=== PATIENT | male | born 1945 | race Caucasian/White ===

== ENCOUNTER 2018-08-18 09:01 | Outpatient (REF) | payer OTHER, SELFPAY ==
[2018-08-18 09:46] LABS: HCT 37.4 % (40.0-50.0); HGB 11.5 g/dL (13.5-17.5); Mean Corp. HGB Concentration 30.7 g/dL (32.0-36.0); Mean Corpuscular Hemoglobin 29.3 pg (27.0-33.0); Mean Corpuscular Volume 95.2 fL (80-95); Mean Platelet Volume 10.8 fL (8.0-11.0); Platelet Count 389 x1000/uL (130-400); RBC 3.93 m/cumm (4.50-6.00); RBC Distribution Width 15.2 % (11.8-14.1); White Blood Cell Count 9.58 k/cumm (4.4-10.8)
[2018-08-18 10:05] LABS: Anion Gap 12.8 mmol/L (3-11); BUN 49 mg/dL (7-18); CO2 24.2 mmol/L (21.0-32.0); CREATININE 1.86 mg/dL (0.70-1.30); Calcium 8.9 mg/dL (8.5-10.1); Chloride 105 mmol/L (98-107); Estimated GFR 35.59 (mL/min/1.73m2); Glucose 175 mg/dL (70-100); Potassium 4.2 mmol/L (3.5-5.1); Sodium 142 mmol/L (136-145); TSH 3.45 uIU/mL (0.358-3.74); Uric Acid 8.1 mg/dL (3.5-7.2)
[2018-08-18 10:28] LABS: Cholesterol 135 mg/dL (50-200); HDL Cholesterol 38 mg/dL (40-60); LDL CHOLESTEROL 70 mg/dL (<100); Triglyceride 130 mg/dL (30-150)
== END 2018-08-18 09:21 ==
LOC: LBN 09:01
PROVIDERS: Visit Provider Nurse Practitioner Adult Health
DX: M10.00 Idiopathic gout, unspecified site (principal); E11.9 Type 2 diabetes mellitus without complications; E78.5 Hyperlipidemia, unspecified; I25.9 Chronic ischemic heart disease, unspecified
CPT/HCPCS: 80048; 80061; 83721; 85027; 84443; 84550

== ENCOUNTER 2018-09-09 09:47 | Emergency (ER) | payer OTHER, SELFPAY ==
[2018-09-09] VITALS (29 sets, daily range): BP systolic 104–130; BP diastolic 57–87; PULSE 79–111; RESP 16–38; TEMP 37; O2SAT 94–98
--- NOTE | 2018-09-09 09:43 | DI.CT_ITS ---
SYMPTOM/DIAGNOSIS: UNRESPONSIVE NONCONTRAST HEAD CT: A noncontrast enhanced examination was performed. Atrophic changes consistent with age are demonstrated and there are regions of diminished absorption in the frontoparietal white matter consistent with small vessel disease. The ventricles are unremarkable. There is no evidence of a skull fracture. Mucoperiosteal thickening is noted in the left ethmoid. The maxillary, right ethmoid, sphenoid and frontal sinuses appear unremarkable. There is no evidence of a mastoid effusion. SUMMARY: No acute intracranial abnormality is demonstrated.
[2018-09-09] MEDS: Normal Saline Flush 10 ML SYR IVP (09:50)
[2018-09-09] MEDS: Normal Saline 1,000 ML 75 ML IV (09:52)
--- NOTE | 2018-09-09 09:56 | W.ED.GENAD ---
Discharge Plan Disposition Patient Disposition: [facility] (LEVEL 2) [facility] Condition: Stable Discharge Details Chief Complaint: Chest Pain Clinical Impression: Chest pain Primary Care Provider: Ron Vicente ED Provider: Evens Gupta Home Meds and New Rx's Prescriptions: Continued metformin 500 mg Tablet 1,000 mg PO DAILY RF: 0 clonidine HCl 0.1 mg Tablet 0.1 mg PO BID RF: 0 acetaminophen 325 mg Tablet 650 mg PO Q6H PRNRF: 0 atorvastatin 20 mg Tablet 20 mg PO DAILY RF: 0 donepezil 5 mg Tablet 5 mg PO QHS RF: 0 sodium bicarbonate 325 mg Tablet 325 mg PO BID RF: 0 sucralfate 1 gram Tablet 1 g PO Q6H PRNRF: 0 lisinopril 20 mg Tablet 20 mg PO DAILY RF: 0 sertraline 100 mg Tablet 200 mg PO DAILY RF: 0 potassium chloride 10 mEq Tablet Extended Release 10 meq PO DAILY RF: 0 clopidogrel 75 mg Tablet 75 mg PO DAILY RF: 0 allopurinol 100 mg Tablet 200 mg PO DAILY RF: 0 aspirin [Aspir-81] 81 mg Tablet,Delayed Release (Dr/Ec) 81 mg PO DAILY RF: 0 isosorbide mononitrate 60 mg Tablet Extended Release 24 Hr 60 mg PO DAILY RF: 0 magnesium hydroxide [Milk of Magnesia] 400 mg/5 mL Suspension 5 ml PO QHS PRNRF: 0 tamsulosin 0.4 mg Capsule 0.8 mg PO DAILY RF: 0 amlodipine 10 mg Tablet 10 mg PO DAILY RF: 0 bisacodyl [Dulcolax (bisacodyl)] 10 mg Suppository 10 mg TN DAILY PRNRF: 0 albuterol sulfate [Proventil HFA] 90 mcg/actuation Hfa Aerosol Inhaler 2 puff INHALATION Q4H PRNRF: 0 colchicine 0.6 mg Tablet 0.6 mg PO DAILY RF: 0 finasteride 5 mg Tablet 5 mg PO DAILY RF: 0 metoprolol tartrate 25 mg Tablet 25 mg PO BID RF: 0 Lantus Solostar U-100 Insulin 100 unit/mL (3 mL) Insulin Pen 38 unit SUBCUT DAILY RF: 0 mirabegron 25 mg Tablet Extended Release 24 Hr 25 mg PO DAILY RF: 0 furosemide 20 mg Tablet 20 mg PO DAILY RF: 0 Discharge Instructions Additional Instructions: We discussed your wishes with our care management adoption social worker Lavinia as well as your family. We completed a COLST form in which you have stated her wishes to not be hospitalized, to be DNR/DNI, to have fluids if needed and antibiotics if they will keep you comfortable. Given your wishes to focus on comfort, a palliative care consult has been placed. Your chest x-ray showed a question of an early pneumonitis, should you develop a fever or cough, at that point antibiotics may be considered. Medical Decision Making 73-year-old male [facility]. He is DNR, DNI, notes he does not want parenteral nutrition or fluids at the end of his life. Found to slump over in a chair in the dining soliman reported to clutch at his chest, unclear if there was a loss of consciousness. EMS found him alert and complaining of chest pain. He was given aspirin and a single nitroglycerin with improvement of his pain. He has a history of ischemic coronary artery disease, A. fib, diabetes. He arrives improving, was placed on a desk monitor, referred for CT scan of the head, chest x-ray, laboratory analysis. The radiographic images of the brain are unremarkable. There is evidence of left retrocardiac early pneumonitis. Lab reveals a white count of 8, hematocrit 37, platelets 227. Chemistries with sodium 141, potassium 4.1, chloride 103, bicarb 29, BUN 25, creatinine 1.3. BNP is elevated at 4000. Patient states he does not wish to have any interventions performed. He clearly is a DNR, DNI, does not want end-of-life fluids or nutrition. He asked to speak to his family and is given a phone that and interviewed by care management both with family member and alone. We completed a coldest form after the patient discussed his wishes with his family. He wishes to not be hospitalized, he wishes to have a focus on comfort. He states that he would be amenable to fluids as well as antibiotics if needed. He wishes to be returned to health and rehab. We have agreed that he would benefit from a palliative care consult which I have placed. The patient is improved. Will relay the question of early pneumonitis to the healthcare facility. Do not feel that he has developed evidence of pneumonia at this time and given that he only wants antibiotics if needed for comfort, will hold off for now. ECG Data Attestation: I personally reviewed and interpreted this ECG (s) as follows: Prior ECG tracings: not available for review Interpretation: A. fib, left bundle branch block, rate of 105, no acute ST segment elevation HPI General Mode of arrival: ambulatory. Date/Time Provider Initiated Documentation: 09/09/18 10:07. Limitations to Documentation: no limitations. Information obtained by: patient and EMS. History of Present Illness 73 year old M presents to the emergency department with the chief complaint of Unresponsive, now with chest pain improved, described as moderate, Quality is described as dull, and is localized to the chest. Patient reports no radiation. Patient started experiencing this minute(s) and it has been other (Improved). No relieving factors improve symptom(s), No exacerbating factors reported . Patient notes other (States he frequently has chest pain); denies headaches and nausea/vomiting. Patient did receive the following treatments prior to arrival, Aspirin and other (Nitro) Related Data Home Medications Medication Instructions Recorded Confirmed Lantus Solostar U-100 Insulin 38 unit SUBCUT DAILY 09/09/18 09/09/18 acetaminophen 650 mg PO Q6H PRN 09/09/18 09/09/18 albuterol sulfate [Proventil HFA] 2 puff INHALATION Q4H PRN 09/09/18 09/09/18 allopurinol 200 mg PO DAILY 09/09/18 09/09/18 amlodipine 10 mg PO DAILY 09/09/18 09/09/18 aspirin [Aspir-81] 81 mg PO DAILY 09/09/18 09/09/18 atorvastatin 20 mg PO DAILY 09/09/18 09/09/18 bisacodyl [Dulcolax (bisacodyl)] 10 mg TN DAILY PRN 09/09/18 09/09/18 clonidine HCl 0.1 mg PO BID 09/09/18 09/09/18 clopidogrel 75 mg PO DAILY 09/09/18 09/09/18 colchicine 0.6 mg PO DAILY 09/09/18 09/09/18 donepezil 5 mg PO QHS 09/09/18 09/09/18 finasteride 5 mg PO DAILY 09/09/18 09/09/18 furosemide 20 mg PO DAILY 09/09/18 09/09/18 isosorbide mononitrate 60 mg PO DAILY 09/09/18 09/09/18 lisinopril 20 mg PO DAILY 09/09/18 09/09/18 magnesium hydroxide [Milk of 5 ml PO QHS PRN 09/09/18 09/09/18 Magnesia] metformin 1,000 mg PO DAILY 09/09/18 09/09/18 metoprolol tartrate 25 mg PO BID 09/09/18 09/09/18 mirabegron 25 mg PO DAILY 09/09/18 09/09/18 potassium chloride 10 meq PO DAILY 09/09/18 09/09/18 sertraline 200 mg PO DAILY 09/09/18 09/09/18 sodium bicarbonate 325 mg PO BID 09/09/18 09/09/18 sucralfate 1 g PO Q6H PRN 09/09/18 09/09/18 tamsulosin 0.8 mg PO DAILY 09/09/18 09/09/18 Allergies Allergy/AdvReac Type Severity Reaction Status Date / Time No Known Allergies Allergy Unverified 09/09/18 09:55 General Stated Complaint: Chest Pain KELLEY: 2 Review of Systems Review of Systems 8 systems reviewed and otherwise negative [facility] Social History Smoking/Tobacco Use Status: Unknown Do you feel safe at home: Yes Do you feel safe in your relationship?: Yes Additional Social history: lives at [facility] H& Exam Narrative Exam Narrative: GEN: awake, alert, interactive. HEAD: Normocephalic, atraumatic ENT: Mucous membranes moist, oropharynx unremarkable, External ear exam unremarkable EYES: PERRL, EOMI NECK: Full ROM, no TERELL, no menigismus CHEST/RESP: Nontender, clear to auscultation bilateral, no wheeze/rhonchi/rales CARDIOVASCULAR: Distant, irregularly irregular, no murmur, rub dae. 2+ Rad pulse bilateral ABDOMEN: Soft, nontender, no mass. +Bowel sounds EXT: Full ROM, trace left pretibial edema, no rash Neuro: Grossly normal neurologic exam, conversant, interactive. Psych: Speech fluent, thoughts congruent, affect normal Course Vital Signs Temperature 37.0 C 09/09/18 09:47 Pulse 96 H 09/09/18 09:47 Respiratory Rate 16 09/09/18 09:47 Blood Pressure 127/58 L 09/09/18 09:47 Pulse Oximetry 96 09/09/18 09:47 Temperature 37.0 C 09/09/18 09:47 Pulse 96 H 09/09/18 09:47 Respiratory Rate 16 09/09/18 09:47 Blood Pressure 127/58 L 09/09/18 09:47 Blood Pressure Position Sitting 09/09/18 09:47 Pulse Oximetry 96 09/09/18 09:47 Oxygen Delivery Method Room Air 09/09/18 09:47 Oxygen Flow Rate 0 09/09/18 09:47 Pain Level 6 09/09/18 09:47
[2018-09-09 10:00] LABS: Abs Immature Grans 0.01 k/cumm (0.0-0.09); Absolute Basophil Count 0.02 k/cumm (0.0-0.2); Absolute Eosinophil Count 0.19 k/cumm (0.0-0.7); Absolute Monocyte Count 0.53 k/cumm (0.11-0.7); Absolute Neutrophil Count 6.93 k/cumm (1.2-6.7); Basophils % 0.2; Eosinophils % 2.2; HCT 37.2 % (40.0-50.0); HGB 11.7 g/dL (13.5-17.5); Immature Grans % 0.1; Lymphocytes % 11.5; Mean Corp. HGB Concentration 31.5 g/dL (32.0-36.0); Mean Corpuscular Hemoglobin 29.8 pg (27.0-33.0); Mean Corpuscular Volume 94.7 fL (80-95); Mean Platelet Volume 10.5 fL (8.0-11.0); Monocytes % 6.1; Neutrophils % 79.9; Platelet Count 227 x1000/uL (130-400); RBC 3.93 m/cumm (4.50-6.00); RBC Distribution Width 15.2 % (11.8-14.1); White Blood Cell Count 8.68 k/cumm (4.4-10.8)
--- NOTE | 2018-09-09 10:01 | ED.GENADUL_ITS ---
Discharge Plan Disposition Patient Disposition: [facility] (LEVEL 2) [facility] Condition: Stable Discharge Details Chief Complaint: Chest Pain Clinical Impression: Chest pain Primary Care Provider: Ron Vicente ED Provider: Evens Gupta Home Meds and New Rx's Prescriptions: Continued metformin 500 mg Tablet 1,000 mg PO DAILY RF: 0 clonidine HCl 0.1 mg Tablet 0.1 mg PO BID RF: 0 acetaminophen 325 mg Tablet 650 mg PO Q6H PRNRF: 0 atorvastatin 20 mg Tablet 20 mg PO DAILY RF: 0 donepezil 5 mg Tablet 5 mg PO QHS RF: 0 sodium bicarbonate 325 mg Tablet 325 mg PO BID RF: 0 sucralfate 1 gram Tablet 1 g PO Q6H PRNRF: 0 lisinopril 20 mg Tablet 20 mg PO DAILY RF: 0 sertraline 100 mg Tablet 200 mg PO DAILY RF: 0 potassium chloride 10 mEq Tablet Extended Release 10 meq PO DAILY RF: 0 clopidogrel 75 mg Tablet 75 mg PO DAILY RF: 0 allopurinol 100 mg Tablet 200 mg PO DAILY RF: 0 aspirin [Aspir-81] 81 mg Tablet,Delayed Release (Dr/Ec) 81 mg PO DAILY RF: 0 isosorbide mononitrate 60 mg Tablet Extended Release 24 Hr 60 mg PO DAILY RF: 0 magnesium hydroxide [Milk of Magnesia] 400 mg/5 mL Suspension 5 ml PO QHS PRNRF: 0 tamsulosin 0.4 mg Capsule 0.8 mg PO DAILY RF: 0 amlodipine 10 mg Tablet 10 mg PO DAILY RF: 0 bisacodyl [Dulcolax (bisacodyl)] 10 mg Suppository 10 mg [place] DAILY PRNRF: 0 albuterol sulfate [Proventil HFA] 90 mcg/actuation Hfa Aerosol Inhaler 2 puff INHALATION Q4H PRNRF: 0 colchicine 0.6 mg Tablet 0.6 mg PO DAILY RF: 0 finasteride 5 mg Tablet 5 mg PO DAILY RF: 0 metoprolol tartrate 25 mg Tablet 25 mg PO BID RF: 0 Lantus Solostar U-100 Insulin 100 unit/mL (3 mL) Insulin Pen 38 unit SUBCUT DAILY RF: 0 mirabegron 25 mg Tablet Extended Release 24 Hr 25 mg PO DAILY RF: 0 furosemide 20 mg Tablet 20 mg PO DAILY RF: 0 Discharge Instructions Additional Instructions: We discussed your wishes with our care management foster care social worker Lavinia as well as your family. We completed a COLST form in which you have stated her wishes to not be hospitalized, to be DNR/DNI, to have fluids if needed and antibiotics if they will keep you comfortable. Given your wishes to focus on comfort, a palliative care consult has been placed. Your chest x-ray showed a question of an early pneumonitis, should you develop a fever or cough, at that point antibiotics may be considered. Medical Decision Making 73-year-old male who has been placed at the [facility] and rehab facility. He is DNR, DNI, notes he does not want parenteral nutrition or fluids at the end of his life. Found to slump over in a chair in the dining soliman reported to clutch at his chest, unclear if there was a loss of consciousness. EMS found him alert and complaining of chest pain. He was given aspirin and a single nitroglycerin with improvement of his pain. He has a history of ischemic coronary artery disease, A. fib, diabetes. He arrives improving, was placed on a youth nutritional monitor, referred for CT scan of the head, chest x-ray, laboratory analysis. The radiographic images of the brain are unremarkable. There is evidence of left retrocardiac early pneumonitis. Lab reveals a white count of 8, hematocrit 37, platelets 227. Chemistries with sodium 141, potassium 4.1, chloride 103, bicarb 29, BUN 25, creatinine 1.3. BNP is elevated at 4000. Patient states he does not wish to have any interventions performed. He clearly is a DNR, DNI, does not want end-of-life fluids or nutrition. He asked to speak to his family and is given a phone that and interviewed by care management both with family member and alone. We completed a coldest form after the patient discussed his wishes with his family. He wishes to not be hospitalized, he wishes to have a focus on comfort. He states that he would be amenable to fluids as well as antibiotics if needed. He wishes to be returned to health and rehab. We have agreed that he would benefit from a palliative care consult which I have placed. The patient is improved. Will relay the question of early pneumonitis to the healthcare facility. Do not feel that he has developed evidence of pneumonia at this time and given that he only wants antibiotics if needed for comfort, will hold off for now. ECG Data Attestation: I personally reviewed and interpreted this ECG (s) as follows: Prior ECG tracings: not available for review Interpretation: A. fib, left bundle branch block, rate of 105, no acute ST segment elevation HPI General Mode of arrival: ambulatory . Date/Time Provider Initiated Documentation: 09/09/18 10:07 . Limitations to Documentation: no limitations . Information obtained by: patient and EMS . History of Present Illness 73 year old M presents to the emergency department with the chief complaint of Unresponsive, now with chest pain improved, described as moderate, Quality is described as dull, and is localized to the chest. Patient reports no radiation. Patient started experiencing this minute(s) and it has been other (Improved). No relieving factors improve symptom(s), No exacerbating factors reported . Patient notes other (States he frequently has chest pain); denies headaches and nausea/vomiting. Patient did receive the following treatments prior to arrival, Aspirin and other (Nitro) Related Data Home Medications Medication Instructions Recorded Confirmed Lantus Solostar U-100 Insulin 38 unit SUBCUT DAILY 09/09/18 09/09/18 acetaminophen 650 mg PO Q6H PRN 09/09/18 09/09/18 albuterol sulfate [Proventil HFA] 2 puff INHALATION Q4H PRN 09/09/18 09/09/18 allopurinol 200 mg PO DAILY 09/09/18 09/09/18 amlodipine 10 mg PO DAILY 09/09/18 09/09/18 aspirin [Aspir-81] 81 mg PO DAILY 09/09/18 09/09/18 atorvastatin 20 mg PO DAILY 09/09/18 09/09/18 bisacodyl [Dulcolax (bisacodyl)] 10 mg [place] DAILY PRN 09/09/18 09/09/18 clonidine HCl 0.1 mg PO BID 09/09/18 09/09/18 clopidogrel 75 mg PO DAILY 09/09/18 09/09/18 colchicine 0.6 mg PO DAILY 09/09/18 09/09/18 donepezil 5 mg PO QHS 09/09/18 09/09/18 finasteride 5 mg PO DAILY 09/09/18 09/09/18 furosemide 20 mg PO DAILY 09/09/18 09/09/18 isosorbide mononitrate 60 mg PO DAILY 09/09/18 09/09/18 lisinopril 20 mg PO DAILY 09/09/18 09/09/18 magnesium hydroxide [Milk of 5 ml PO QHS PRN 09/09/18 09/09/18 Magnesia] metformin 1,000 mg PO DAILY 09/09/18 09/09/18 metoprolol tartrate 25 mg PO BID 09/09/18 09/09/18 mirabegron 25 mg PO DAILY 09/09/18 09/09/18 potassium chloride 10 meq PO DAILY 09/09/18 09/09/18 sertraline 200 mg PO DAILY 09/09/18 09/09/18 sodium bicarbonate 325 mg PO BID 09/09/18 09/09/18 sucralfate 1 g PO Q6H PRN 09/09/18 09/09/18 tamsulosin 0.8 mg PO DAILY 09/09/18 09/09/18 Allergies Allergy/AdvReac Type Severity Reaction Status Date / Time No Known Allergies Allergy Unverified 09/09/18 09:55 General Stated Complaint: Chest Pain KELLEY: 2 Review of Systems Review of Systems 8 systems reviewed and otherwise negative [facility] Social History Smoking/Tobacco Use Status: Unknown Do you feel safe at home: Yes Do you feel safe in your relationship?: Yes Additional Social history: lives at [facility] H& Exam Narrative Exam Narrative: GEN: awake, alert, interactive. HEAD: Normocephalic, atraumatic ENT: Mucous membranes moist, oropharynx unremarkable, External ear exam unremarkable EYES: PERRL, EOMI NECK: Full ROM, no TERELL, no menigismus CHEST/RESP: Nontender, clear to auscultation bilateral, no wheeze/rhonchi/rales CARDIOVASCULAR: Distant, irregularly irregular, no murmur, rub dae. 2+ Rad pulse bilateral ABDOMEN: Soft, nontender, no mass. +Bowel sounds EXT: Full ROM, trace left pretibial edema, no rash Neuro: Grossly normal neurologic exam, conversant, interactive. Psych: Speech fluent, thoughts congruent, affect normal Course Vital Signs Temperature 37.0 C 09/09/18 09:47 Pulse 96 H 09/09/18 09:47 Respiratory Rate 16 09/09/18 09:47 Blood Pressure 127/58 L 09/09/18 09:47 Pulse Oximetry 96 09/09/18 09:47 Temperature 37.0 C 09/09/18 09:47 Pulse 96 H 09/09/18 09:47 Respiratory Rate 16 09/09/18 09:47 Blood Pressure 127/58 L 09/09/18 09:47 Blood Pressure Position Sitting 09/09/18 09:47 Pulse Oximetry 96 09/09/18 09:47 Oxygen Delivery Method Room Air 09/09/18 09:47 Oxygen Flow Rate 0 09/09/18 09:47 Pain Level 6 09/09/18 09:47
[2018-09-09 10:13] LABS: INR 1.1 (0.9-1.1); PTT Activated 23.6 sec (21.0-31.4); Prothrombin Time 10.8 sec (9.3-11.0)
[2018-09-09 10:20] LABS: ALT 25 U/L (12-78); AST 23 U/L (15-37); Alkaline Phosphatase 129 U/L (46-116); Anion Gap 8.9 mmol/L (3-11); BUN 25 mg/dL (7-18); Bilirubin, Total 0.3 mg/dL (0.2-1.0); CO2 29.1 mmol/L (21.0-32.0); CREATININE 1.31 mg/dL (0.70-1.30); Calcium 8.8 mg/dL (8.5-10.1); Chloride 103 mmol/L (98-107); Estimated GFR 53.34 (mL/min/1.73m2); Glucose 183 mg/dL (70-100); Magnesium 1.7 mg/dL (1.8-2.4); Potassium 4.1 mmol/L (3.5-5.1); Sodium 141 mmol/L (136-145); Total Protein 6.4 g/dL (6.4-8.2); Troponin I 0.03 ng/mL (0.00-0.06)
[2018-09-09 10:22] LABS: NT-proBNP 4061 pg/mL
--- NOTE | 2018-09-09 10:34 | DI.RAD_ITS ---
SYMPTOM/DIAGNOSIS: UNRESPONSIVE, CHEST PAIN AP AND LATERAL CHEST: The right lung is clear. There is some ill defined increased density projected over the left lower lobe which could certainly represent an acute pneumonitis. The left lung is otherwise unremarkable. There is no pleural effusion. The heart is enlarged. The hilar structures, mediastinum and tracheal air column are intact. SUMMARY: Findings consistent with a left lower lobe pneumonitis in a patient with cardiomegaly.
--- NOTE | 2018-09-09 11:37 | NUR.NOTE ---
Nursing Note: Pt asking for phone with family. Pt refuses any intervention at this time. Pt states he wants to confess my wrongs to them. Pt refuses lasix IV as well, even after education was provided. Lavinia, landcare officer has been asked to contact family and will follow up with doctor and pt in regards to this. aware.
--- NOTE | 2018-09-09 12:11 | PDOC.ERCMPRO ---
Care Management Progress Note 09/09-Dr. Gupta and Mae RN requested assistance with Dung's disposition. Dung is stating that he does not want to have any interventions, he just wants to go back to [facility] and be comfortable. Called MALATHI Gonzalez and there was no answer. Reached Sophia Naresh, and discussed above. Sophia stated that Aliyah was working and is unreachable at this time. Sophia requested to speak with Dung for which she did. This CM spoke with Sophia and she asked about interventions. Explained that Dr. Gupat found Dung to be able to speak for himself and that this CM would ask Dr. Gupta to reassess. Dr. Gupta and this CM met with Dung. Dung was very clear that he did not want any interventions. He wants to be a DNR/DNI, does not want a feeding tube, would like antibiotics with comfort as goal, would accept IV hydration with comfort as goal. Dung stated that he did not want to come to the hospital, that he would like to go back to [facility] and be comfortable. Discussed COLST form and one has been completed by Dr. Gupta and Dung. (Please see provider note for supporting documentation). Copy of COLST form was given to [facility] and scanned into [facility] EMR. Discussed Palliative Care Consult. Dung is in agreement with a Palliative Consult. Referral faxed to Palliative Care Office. Called Spohia back to update her on the COLST and that Dung is still stating that he does not want any interventions. Sophia stated, I support whatever Dung is saying he wants. I will notify Aliyah as soon as she gets out of work. I did discuss with Sophia that Dung stated he wants to see his family. Sophia states they are scheduled to come for a visit on Thursday or Thursday next week. Plan is for patient to return to [facility] with a COLST form, Palliative Consult, and to be kept comfortable. Dr. Gupta is in agreement with the above.
[2018-09-09] MEDS: Furosemide 20 MG/2 ML VIAL IVP (12:15)
--- NOTE | 2018-09-09 12:26 | CMPROGNOTE_ITS ---
Care Management Progress Note 09/09-Dr. Gupta and Mae RN requested assistance with Dung's disposition. Dung is stating that he does not want to have any interventions, he just wants to go back to [facility] and be comfortable. Called MALATHI Gonzalez and there was no answer. Reached Sophia Naresh, and discussed above. Sophia stated that Aliyah was working and is unreachable at this time. Sophia requested to speak with Dung for which she did. This CM spoke with Sophia and she asked about interventions. Explained that Dr. Gupta found Dung to be able to speak for himself and that this CM would ask Dr. Gupta to reassess. Dr. Gupta and this CM met with Dung. Dung was very clear that he did not want any interventions. He wants to be a DNR/DNI, does not want a feeding tube, would like antibiotics with comfort as goal, would accept IV hydration with comfort as goal. Dung stated that he did not want to come to the hospital, th at he would like to go back to [facility] and be comfortable. Discussed COLST form and one has been completed by Dr. Gupta and Dung. (Please see provider note for supporting documentation). Copy of COLST form was given to [facility] and scanned into [facility] EMR. Discussed Palliative Care Consult. Dung is in agreement with a Palliative Consult. Referral faxed to Palliative Care Office. Called Sophia back to update her on the COLST and that Dung is still stating that he does not want any interventions. Sophia stated, I support whatever Dung is saying he wants. I will notify Aliyah as soon as she gets out of work. I did discuss with Sophia that Dung stated he wants to see his family. Sophia states they are scheduled to come for a visit on Thursday or Thursday next week. Plan is for patient to return to [facility] with a COLST form, Palliative Consult, and to be kept comfortable. Dr. Gupta is in agreement with the above.
--- NOTE | 2018-09-09 13:53 | NUR.NOTE ---
Nursing Note: Spoke with LEONA tim on the phone and updated on plan of care and pt wishes. Difficulty having transport arranged from [facility]. Please see care professional note from this date addressing these difficulties. ED advanced nursing professor made aware.
--- NOTE | 2018-09-09 15:04 | NUR.NOTE ---
patient sitting in wheelchair, patient awaiting for [facility] wheelchair van to return patient home Nursing Note:
== END 2018-09-09 15:07 | disposition intermediate care facility (04) ==
PROVIDERS: Emergency Provider Emergency Medicine; PCP Family Medicine
DX: R07.9 Chest pain, unspecified (principal); I44.7 Left bundle-branch block, unspecified; I48.91 Unspecified atrial fibrillation
CPT/HCPCS: 36415; 80053; 93005; 96361; 96374; 99285; 70450; 71046; 83735; 83880; 84484; 85025; 85610; 85730; 93010; J1941

== ENCOUNTER 2018-12-23 22:51 | Emergency (ER) | payer MEDICARE, OTHER, SELFPAY ==
[2018-12-23] VITALS (10 sets, daily range): BP systolic 129–131; BP diastolic 72–85; PULSE 78–93; RESP 17–26; TEMP 36.4; O2SAT 94–96
--- NOTE | 2018-12-23 23:01 | DI.RAD_ITS ---
SYMPTOM/DIAGNOSIS: COUGH, CHEST PAIN PA AND LATERAL CHEST: Comparison is made with 09 Sep 2018. The heart is again noted to be enlarged. There are small bilateral pleural effusions. There is vascular prominence and increased densities at the lung bases suspicious for CHF. The findings appear more prominent when compared with the previous exam. IMPRESSION: Bilateral pleural effusions, cardiomegaly and CHF.
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
[2018-12-23] MEDS: MORPHine 10 MG/ML VIAL 4 MG IVP (23:14)
[2018-12-23 23:18] LABS: Abs Immature Grans 0.02 k/cumm (0.0-0.09); Absolute Basophil Count 0.03 k/cumm (0.0-0.2); Absolute Eosinophil Count 0.21 k/cumm (0.0-0.7); Absolute Lymphocyte Count 1.87 k/cumm (1.2-3.4); Absolute Monocyte Count 0.68 k/cumm (0.11-0.7); Absolute Neutrophil Count 5.45 k/cumm (1.2-6.7); Basophils % 0.4; Eosinophils % 2.5; HCT 38.4 % (40.0-50.0); HGB 12.1 g/dL (13.5-17.5); Immature Grans % 0.2; Lymphocytes % 22.6; Mean Corp. HGB Concentration 31.5 g/dL (32.0-36.0); Mean Corpuscular Hemoglobin 30.6 pg (27.0-33.0); Mean Platelet Volume 10.7 fL (8.0-11.0); Monocytes % 8.2; Neutrophils % 66.1; Platelet Count 298 x1000/uL (130-400); RBC 3.96 m/cumm (4.50-6.00); RBC Distribution Width 15.4 % (11.8-14.1); White Blood Cell Count 8.26 k/cumm (4.4-10.8)
[2018-12-23 23:27] LABS: INR 1.1 (0.9-1.1); PTT Activated 23.2 sec (21.0-31.4); Prothrombin Time 10.9 sec (9.3-11.0)
[2018-12-23 23:36] LABS: ALT 27 U/L (16-63); AST 32 U/L (15-37); Albumin 2.9 g/dL (3.4-5.0); Alkaline Phosphatase 103 U/L (46-116); Anion Gap 7.1 mmol/L (3-11); BUN 36 mg/dL (7-18); Bilirubin, Total 0.3 mg/dL (0.2-1.0); CO2 30.9 mmol/L (21.0-32.0); CREATININE 1.43 mg/dL (0.70-1.30); Calcium 8.4 mg/dL (8.5-10.1); Chloride 106 mmol/L (98-107); Estimated GFR 48.21 (mL/min/1.73m2); Glucose 129 mg/dL (70-100); NT-proBNP 8906 pg/mL; Sodium 144 mmol/L (136-145); Total Protein 6.1 g/dL (6.4-8.2)
[2018-12-23 23:37] LABS: Troponin I < 0.05 ng/mL (0.00-0.06)
[2018-12-24] VITALS (8 sets, daily range): BP systolic 119–127; BP diastolic 65–74; PULSE 76–94; RESP 20–24; O2SAT 94–96
--- NOTE | 2018-12-24 00:10 | DI.VRAD_ITS ---
EXAM: XR Chest, 2 Views EXAM DATE/TIME: 12/23/2018 23:02 CLINICAL HISTORY: 73 years old, male; Chest pain; Type not specified; Additional info: Cough, chest pain TECHNIQUE: Imaging protocol: XR of the chest Views: 2 views. COMPARISON: CR XR CHEST 2V PA LATERAL 09/09/2018 10:27 FINDINGS: Lungs: Generalized increase in hazy opacities in the bases. Pleural space: Pleural effusions are now present, small on the left and probably trace on the right. No pneumothorax. Heart/Mediastinum: Moderate cardiomegaly. Vasculature: Atherosclerosis. Bones/joints: No acute fracture. IMPRESSION: 1. Generalized increase in vascular congestion in the setting of cardiomegaly, probably worsened CHF. 2. Increased hazy opacities in the lung bases, probably subsegmental atelectasis, consider pneumonia in the right clinical setting. Dictated and Authenticated by: Letty Coy MD. Ordering:SUSI Mane MD
[2018-12-24] MEDS: Amoxicillin 875/Clav. 125 TAB PO (00:27)
[2018-12-24] MEDS: Doxycycline Hyclate 100 MG CAP PO (00:27)
== END 2018-12-24 00:49 | disposition skilled nursing facility (03) ==
PROVIDERS: Emergency Provider Student in an Organized Health Care Education/Training Program; PCP Family Medicine
DX: J18.9 Pneumonia, unspecified organism (principal); K21.9 Gastro-esophageal reflux disease without esophagitis; I50.9 Heart failure, unspecified; I13.0 Hypertensive heart and chronic kidney disease with heart failure and stage 1 through stage 4 chronic kidney disease, or unspecified chronic kidney disease; N18.9 Chronic kidney disease, unspecified; I48.91 Unspecified atrial fibrillation; E11.22 Type 2 diabetes mellitus with diabetic chronic kidney disease; Z79.4 Long term (current) use of insulin; I25.10 Atherosclerotic heart disease of native coronary artery without angina pectoris; Z95.5 Presence of coronary angioplasty implant and graft; Z66 Do not resuscitate
CPT/HCPCS: 36415; 80053; 93005; 96374; 99285; 71046; 83880; 84484; 85025; 85610; 85730; 93010; J2270

== ENCOUNTER 2019-01-19 21:48 | Emergency (ER) | payer OTHER, SELFPAY ==
[2019-01-19 21:54] VITALS: BP 147/85; PULSE 96; RESP 21; TEMP 36.1; O2SAT 96
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
--- NOTE | 2019-01-19 23:21 | DI.CT_ITS ---
EXAM: CT HEAD CERVICAL SPINE WO CLINICAL HISTORY: fall. TECHNIQUE: COMPARISON: CT HEAD WO from 09/09/2018 FINDINGS: CT examination the cervical spine was performed utilizing multi slice acquisition and multiplanar rec onstruction. There are severe degenerative changes of the cervical spine. There is multilevel disc space loss of height consistent with disc degeneration. Mild anterolisthesis of C4 on C5 presumably chronic. No evidence of acute fracture or dislocation. Images obtained through the lung apices are unremarkable. Tracheolaryngeal structures appear intact. Bilateral pleural effusions are noted. No cervical mass or adenopathy. Noncontrast cranial CT was performed. There is moderate generalized cerebral atrophy. No evidence o f acute intracranial hemorrhage mass effect or midline shift. No calvarial fracture. Mastoid air ce lls and visualized paranasal sinuses are clear. Orbital and temporal bone structures appear intact. IMPRESSION: No evidence of acute intracranial process. No evidence of acute cervical spine fracture. Severe cervical spine DJD noted. Bilateral pleural effusions noted.
--- NOTE | 2019-01-19 23:21 | DI.RAD_ITS ---
EXAM: XR CHEST 2V PA LATERAL INDICATION: fall. COMPARISON: XR CHEST 2V PA LATERAL from 12/23/2018 TECHNIQUE: 2D digital imaging was performed. FINDINGS: The heart is enlarged. There are bilateral pleural effusions and there is mild increase in pulmonary interstitial markings suggesting mild diffuse pulmonary edema. IMPRESSION: Findings suggesting the presence of acute CHF.
--- NOTE | 2019-01-19 23:53 | DI.VRAD_ITS ---
PROCEDURE INFORMATION: Exam: CT Head Without Contrast Exam date and time: 01/19/2019 11:08 PM Clinical history: 73 years old, male; Injury or trauma; Initial encounter; Blunt trauma (contusions or hematomas); Consciousness not specified; Injury date: 01/19/2019; Injury details: Fall from wheelchair TECHNIQUE: Imaging protocol: Computed tomography of the head without contrast. Radiation optimization: All CT scans at this facility use at least one of these dose optimization techniques: automated exposure control; mA and/or kV adjustment per patient size (includes targeted exams where dose is matched to clinical indication); or iterative reconstruction. COMPARISON: CT HEAD WO 09/09/2018 10:21 AM FINDINGS: Brain: There is no acute intracranial hemorrhage, mass effect or midline shift. No large acute territorial infarct identified. There are patchy regions of hypodensity in the periventricular and subcortical white matter, likely on the basis of chronic microvascular ischemic disease. Ventricles: The ventricles and sulci are prominent in size, which is likely related to global cerebral volume loss. Bones/joints: Unremarkable. No acute fracture. Sinuses: Visualized sinuses are unremarkable. No fluid levels. Mastoid air cells: Visualized mastoid air cells are well aerated. Soft tissues: Unremarkable. Vasculature: There are extensive atherosclerotic calcifications at the bilateral carotid siphons. IMPRESSION: No acute intracranial hemorrhage, mass effect or midline shift. PROCEDURE INFORMATION: Exam: CT Cervical Spine Without Contrast Exam date and time: 01/19/2019 11:08 PM Clinical history: 73 years old, male; Injury or trauma; Initial encounter; Blunt trauma (contusions or hematomas); Consciousness not specified; Injury date: 01/19/2019; Injury details: Fall from wheelchair TECHNIQUE: Imaging protocol: Computed tomography images of the cervical spine without contrast. Radiation optimization: All CT scans at this facility use at least one of these dose optimization techniques: automated exposure control; mA and/or kV adjustment per patient size (includes targeted exams where dose is matched to clinical indication); or iterative reconstruction. COMPARISON: CT HEAD WO 09/09/2018 10:21 AM FINDINGS: Vertebrae: There is grade 1 anterolisthesis of C4 on C5. There is fusion of the bilateral facet joints at the C3-C4 level. No acute fracture is seen. Discs/Spinal canal/Neural foramina: Multilevel degenerative changes are noted with degenerative disc disease and facet arthropathy. There is no significant spinal canal stenosis. Multilevel neural foraminal narrowing is noted. Soft tissues: Unremarkable. Pleural space: Bilateral pleural effusions are noted. IMPRESSION: 1. No evidence of acute fracture or listhesis. Multilevel degenerative changes as described. 2. Bilateral pleural effusions. Dictated and Authenticated by: Mely Pedraza MD. Ordering:ABIEL Razo MD
--- NOTE | 2019-01-19 23:57 | DI.VRAD_ITS ---
PROCEDURE INFORMATION: Exam: XR Chest, 2 Views Exam date and time: 01/19/2019 11:20 PM Clinical history: 73 years old, male; Injury or trauma; Initial encounter; Blunt trauma (contusions or hematomas); Injury date: 01/19/2019; Injury details: Fall from wheelchair TECHNIQUE: Imaging protocol: XR of the chest Views: 2 views. COMPARISON: SC XR CHEST 2V PA LATERAL 12/23/2018 11:26 PM FINDINGS: Lungs: Hazy opacities in the bilateral lung hall may represent mild pulmonary edema. Pleural space: There are bilateral pleural effusions. Heart/Mediastinum: Cardiomegaly is noted. Bones/joints: Unremarkable. IMPRESSION: Cardiomegaly with hazy opacities and bilateral pleural effusions which may be secondary to cardiogenic pulmonary edema. Dictated and Authenticated by: Mely Pedraza MD. Ordering:BAIEL Razo MD
[2019-01-20 00:12] VITALS: BP 140/87; PULSE 90; RESP 18; TEMP 36.6; O2SAT 98
== END 2019-01-20 00:20 | disposition intermediate care facility (04) ==
PROVIDERS: Emergency Provider Emergency Medicine; PCP Family Medicine
DX: M54.2 Cervicalgia (principal); W05.0XXA Fall from non-moving wheelchair, initial encounter; E11.9 Type 2 diabetes mellitus without complications; J44.9 Chronic obstructive pulmonary disease, unspecified; I10 Essential (primary) hypertension; Z79.4 Long term (current) use of insulin; Z87.891 Personal history of nicotine dependence
CPT/HCPCS: 99284; 70450; 71046; 72125

== ENCOUNTER 2019-08-18 18:16 | Outpatient (REF) | payer SELFPAY ==
[2019-08-18 16:10] LABS: HCT 36.3 % (40.0-50.0); HGB 11.5 g/dL (13.5-17.5); Mean Corp. HGB Concentration 31.7 g/dL (32.0-36.0); Mean Corpuscular Hemoglobin 31.8 pg (27.0-33.0); Mean Corpuscular Volume 100.3 fL (80-95); Mean Platelet Volume 10.3 fL (8.0-11.0); Platelet Count 275 x1000/uL (130-400); RBC 3.62 m/cumm (4.50-6.00); RBC Distribution Width 14.5 % (11.8-14.1); White Blood Cell Count 6.88 k/cumm (4.4-10.8)
[2019-08-18 16:12] LABS: Anion Gap 6.1 mmol/L (3-11); BUN 41 mg/dL (7-18); CO2 32.9 mmol/L (21.0-32.0); CREATININE 1.54 mg/dL (0.70-1.30); Calcium 8.6 mg/dL (8.5-10.1); Chloride 102 mmol/L (98-107); Estimated GFR 44.14 (mL/min/1.73m2); Glucose 161 mg/dL (74-106); Magnesium 1.7 mg/dL (1.8-2.4); Potassium 3.7 mmol/L (3.5-5.1); Sodium 141 mmol/L (136-145)
[2019-08-18 16:33] LABS: NT-proBNP 8760 pg/mL (<300)
== END 2019-08-18 18:36 ==
LOC: LBN 18:16
PROVIDERS: PCP Family Medicine; Visit Provider Nurse Practitioner Adult Health
DX: I50.9 Heart failure, unspecified (principal); F25.9 Schizoaffective disorder, unspecified; E11.9 Type 2 diabetes mellitus without complications; E03.9 Hypothyroidism, unspecified
CPT/HCPCS: 80048; 85027; 83735; 83880

== ENCOUNTER 2019-09-17 15:53 | Outpatient (REF) | payer MEDICARE, OTHER, SELFPAY ==
[2019-09-17 16:38] LABS: Anion Gap 8.4 mmol/L (3-11); BUN 72 mg/dL (7-18); CO2 27.6 mmol/L (21.0-32.0); CREATININE 2.33 mg/dL (0.70-1.30); Calcium 8.4 mg/dL (8.5-10.1); Chloride 107 mmol/L (98-107); Estimated GFR 27.37 (mL/min/1.73m2); Glucose 141 mg/dL (74-106); Potassium 4.5 mmol/L (3.5-5.1); Sodium 143 mmol/L (136-145)
== END 2019-09-17 16:13 ==
LOC: LBN 15:53
PROVIDERS: PCP Family Medicine; Visit Provider Nurse Practitioner Adult Health
DX: I50.9 Heart failure, unspecified (principal); E11.9 Type 2 diabetes mellitus without complications; E78.5 Hyperlipidemia, unspecified; E03.9 Hypothyroidism, unspecified
CPT/HCPCS: 80048

== ENCOUNTER 2019-10-04 09:59 | Outpatient (REF) | payer MEDICARE, OTHER, SELFPAY ==
[2019-10-04 11:31] LABS: HCT 35.6 % (40.0-50.0); HGB 11.7 g/dL (13.5-17.5); Mean Corp. HGB Concentration 32.9 g/dL (32.0-36.0); Mean Corpuscular Volume 100.3 fL (80-95); Mean Platelet Volume 10.7 fL (8.0-11.0); Platelet Count 276 x1000/uL (130-400); RBC 3.55 m/cumm (4.50-6.00); RBC Distribution Width 15.1 % (11.8-14.1); White Blood Cell Count 8.58 k/cumm (4.4-10.8)
[2019-10-04 11:33] LABS: Anion Gap 11.3 mmol/L (3-11); BUN 53 mg/dL (7-18); CO2 24.7 mmol/L (21.0-32.0); CREATININE 1.57 mg/dL (0.70-1.30); Calcium 8.4 mg/dL (8.5-10.1); Chloride 106 mmol/L (98-107); Estimated GFR 43.17 (mL/min/1.73m2); Glucose 162 mg/dL (74-106); Potassium 4.8 mmol/L (3.5-5.1); Sodium 142 mmol/L (136-145)
[2019-10-05 13:29] LABS: COVID-19 RT-PCR Result Not Detected ((See Note))
== END 2019-10-04 10:19 ==
LOC: LBN 09:59
PROVIDERS: PCP Family Medicine; Visit Provider Family Medicine
DX: E11.9 Type 2 diabetes mellitus without complications (principal); N18.3 Chronic kidney disease, stage 3 (moderate); I10 Essential (primary) hypertension; R60.9 Edema, unspecified; R19.7 Diarrhea, unspecified; Z20.828 Contact with and (suspected) exposure to other viral communicable diseases
CPT/HCPCS: 80048; 85027; U0003

== ENCOUNTER 2019-12-06 16:14 | Outpatient (REF) | payer MEDICARE, OTHER, SELFPAY ==
[2019-12-06 16:50] LABS: ALT 16 U/L (16-63); AST 14 U/L (15-37); Albumin 3.2 g/dL (3.4-5.0); Alkaline Phosphatase 108 U/L (46-116); Anion Gap 4.3 mmol/L (3-11); BUN 41 mg/dL (7-18); Bilirubin, Total 0.3 mg/dL (0.2-1.0); CO2 30.7 mmol/L (21.0-32.0); CREATININE 1.32 mg/dL (0.70-1.30); Calculated LDL 54 mg/dL (<100); Chloride 107 mmol/L (98-107); Cholesterol 121 mg/dL (<200); Estimated GFR 52.73 (mL/min/1.73m2); Glucose 166 mg/dL (74-106); HDL Cholesterol 30 mg/dL (40-60); Potassium 4.3 mmol/L (3.5-5.1); Sodium 142 mmol/L (136-145); Total Protein 5.9 g/dL (6.4-8.2); Triglyceride 187 mg/dL (<150)
[2019-12-06 18:25] LABS: Calcium 8.5 mg/dL (8.5-10.1)
== END 2019-12-06 16:34 ==
LOC: LBN 16:14
PROVIDERS: PCP Family Medicine; Visit Provider Nurse Practitioner Adult Health
DX: E11.9 Type 2 diabetes mellitus without complications (principal); E78.5 Hyperlipidemia, unspecified; I25.9 Chronic ischemic heart disease, unspecified; N18.3 Chronic kidney disease, stage 3 (moderate); I50.9 Heart failure, unspecified
CPT/HCPCS: 80053; 80061; 83036

== ENCOUNTER 2020-03-03 16:46 | Outpatient (REF) | payer MEDICARE, OTHER, SELFPAY ==
[2020-03-05 10:30] LABS: SARS-CoV-2 RNA Not Detected (NotDetected); SARS-CoV-2 RNA Source Nasal/Nares
== END 2020-03-03 17:06 ==
LOC: LBN 16:46
PROVIDERS: PCP Family Medicine; Visit Provider Nurse Practitioner Adult Health
DX: Z11.59 Encounter for screening for other viral diseases (principal)
CPT/HCPCS: U0003

== ENCOUNTER 2020-05-23 22:32 | Outpatient (REF) | payer MEDICARE, OTHER, SELFPAY ==
[2020-05-23 16:12] LABS: Abs Immature Grans 0.02 10^3/uL (0.0-0.06); Absolute Basophil Count 0.02 10^3/uL (0.0-0.2); Absolute Eosinophil Count 0.26 10^3/uL (0.0-0.7); Absolute Lymphocyte Count 1.32 10^3/uL (1.2-3.4); Absolute Monocyte Count 0.46 10^3/uL (0.1-0.8); Basophils % 0.3; Eosinophils % 4.2; HCT 34.4 % (40.0-50.0); HGB 11.2 g/dL (13.5-17.5); Immature Grans % 0.3; Lymphocytes % 21.4; MCH 32.1 pg (27.0-33.0); MCHC 32.6 % (32.0-36.0); MCV 98.6 fL (80-95); MPV 11.1 fL (8.0-11.0); Monocytes % 7.4; Neutrophils % 66.4; Nucleated RBC 0 %; Platelet Count 223 10^3/uL (130-400); RBC 3.49 10^6/uL (4.36-5.78); RDW 13.6 % (11.8-14.1); RDW-SD 48.9 fL; WBC 6.18 10^3/uL (4.4-10.8)
[2020-05-23 16:34] LABS: Hemoglobin A1C 8.1 % (<5.7)
[2020-05-23 16:38] LABS: ALT 14 U/L (16-63); AST 11 U/L (15-37); Albumin 3.1 g/dL (3.4-5.0); Alkaline Phosphatase 102 U/L (46-116); Anion Gap 9.3 mmol/L (3-11); BUN 39 mg/dL (7-18); Bilirubin, Total 0.4 mg/dL (0.2-1.0); CO2 27.7 mmol/L (21.0-32.0); CREATININE 1.4 mg/dL (0.70-1.30); Calcium 8.7 mg/dL (8.5-10.1); Chloride 106 mmol/L (98-107); Estimated GFR 49.14 (mL/min/1.73m2); Glucose 239 mg/dL (74-106); Potassium 4.4 mmol/L (3.5-5.1); Sodium 143 mmol/L (136-145); Total Protein 5.9 g/dL (6.4-8.2)
[2020-05-23 16:56] LABS: VALPROIC ACID 13.1 ug/mL (50-100)
== END 2020-05-23 22:33 | disposition home or self-care (01) ==
LOC: LBN 22:32
PROVIDERS: PCP Family Medicine; Visit Provider Nurse Practitioner Adult Health
DX: E11.9 Type 2 diabetes mellitus without complications (principal); I50.9 Heart failure, unspecified; I25.9 Chronic ischemic heart disease, unspecified; F25.9 Schizoaffective disorder, unspecified; Z51.81 Encounter for therapeutic drug level monitoring
CPT/HCPCS: 80053; 80164; 83036; 85025

== ENCOUNTER 2020-06-27 14:23 | Outpatient (REF) | payer MEDICARE, OTHER, SELFPAY ==
[2020-06-27 15:55] LABS: Abs Immature Grans 0.02 10^3/uL (0.0-0.06); Absolute Basophil Count 0.02 10^3/uL (0.0-0.2); Absolute Eosinophil Count 0.19 10^3/uL (0.0-0.7); Absolute Monocyte Count 0.58 10^3/uL (0.1-0.8); Basophils % 0.3; HCT 33.4 % (40.0-50.0); HGB 10.8 g/dL (13.5-17.5); Immature Grans % 0.3; MCH 32.1 pg (27.0-33.0); MCHC 32.3 % (32.0-36.0); MCV 99.4 fL (80-95); MPV 10.9 fL (8.0-11.0); Monocytes % 9.2; Neutrophils % 68.2; Nucleated RBC 0 %; Platelet Count 215 10^3/uL (130-400); RBC 3.36 10^6/uL (4.36-5.78); RDW 13.2 % (11.8-14.1); RDW-SD 48.3 fL; WBC 6.31 10^3/uL (4.4-10.8)
[2020-06-27 16:27] LABS: Hemoglobin A1C 7.9 % (<5.7)
[2020-06-27 16:28] LABS: ALT 17 U/L (16-63); AST 11 U/L (15-37); Alkaline Phosphatase 93 U/L (46-116); Anion Gap 8.8 mmol/L (3-11); BUN 40 mg/dL (7-18); Bilirubin, Total 0.4 mg/dL (0.2-1.0); CO2 30.2 mmol/L (21.0-32.0); CREATININE 1.6 mg/dL (0.70-1.30); Calcium 8.5 mg/dL (8.5-10.1); Chloride 106 mmol/L (98-107); Estimated GFR 42.12 (mL/min/1.73m2); Glucose 190 mg/dL (74-106); Potassium 4.5 mmol/L (3.5-5.1); Sodium 145 mmol/L (136-145); TSH 1.87 uIU/mL (0.36-3.74); Total Protein 5.8 g/dL (6.4-8.2)
== END 2020-06-27 14:24 | disposition home or self-care (01) ==
LOC: LBN 14:23
PROVIDERS: PCP Family Medicine; Visit Provider Nurse Practitioner Adult Health
DX: E11.9 Type 2 diabetes mellitus without complications (principal); M10.00 Idiopathic gout, unspecified site
CPT/HCPCS: 80053; 83036; 84443; 84550; 85025

== ENCOUNTER 2020-11-01 00:53 | Outpatient (REF) | payer MEDICARE, OTHER, SELFPAY ==
[2020-11-01 01:30] LABS: HCT 34.8 % (40.0-50.0); HGB 11.3 g/dL (13.5-17.5); MCH 31.4 pg (27.0-33.0); MCHC 32.5 % (32.0-36.0); MCV 96.7 fL (80-95); Platelet Count 201 10^3/uL (130-400); RDW 13.5 % (11.8-14.1); RDW-SD 48.6 fL; WBC 6.92 10^3/uL (4.4-10.8)
[2020-11-01 01:45] LABS: ALT 19 U/L (16-63); AST 12 U/L (15-37); Albumin 3.1 g/dL (3.4-5.0); Alkaline Phosphatase 109 U/L (46-116); Anion Gap 9.4 mmol/L (3-11); Bilirubin, Total 0.3 mg/dL (0.2-1.0); CO2 24.6 mmol/L (21.0-32.0); CREATININE 1.8 mg/dL (0.70-1.30); Calcium 8.5 mg/dL (8.5-10.1); Chloride 107 mmol/L (98-107); Estimated GFR 36.77 (mL/min/1.73m2); Glucose 273 mg/dL (74-106); NT-proBNP 3209 pg/mL (<300); Potassium 4.5 mmol/L (3.5-5.1); Sodium 141 mmol/L (136-145); Total Protein 5.9 g/dL (6.4-8.2)
[2020-11-01 01:51] LABS: BUN 84 mg/dL (7-18)
[2020-11-01 03:23] LABS: Anion Gap 8.7 mmol/L (3-11); CO2 26.3 mmol/L (21.0-32.0); CREATININE 1.7 mg/dL (0.70-1.30); Calcium 8.5 mg/dL (8.5-10.1); Chloride 108 mmol/L (98-107); Estimated GFR 39.28 (mL/min/1.73m2); Glucose 250 mg/dL (74-106); Potassium 4.5 mmol/L (3.5-5.1); Sodium 143 mmol/L (136-145)
[2020-11-01 03:25] LABS: BUN 82 mg/dL (7-18)
[2020-11-01 12:18] LABS: Bilirubin Negative (Negative); Blood Negative (Negative); Clarity Clear (Clear); Glucose 100 mg/dL (Negative); Ketones Negative (Negative); Leukocyte Esterase Negative (Negative); Nitrite Negative (Negative); Specific Gravity 1.015 (1.005-1.025); Urobilinogen 0.2 EU/dL (Up TO 0.2); pH 5.5 (5-8)
== END 2020-11-01 00:54 | disposition home or self-care (01) ==
LOC: LBN 00:53
PROVIDERS: Nurse Practitioner Family; PCP Family Medicine; Visit Provider Family Medicine
DX: F01.51 Vascular dementia, unspecified severity, with behavioral disturbance (principal); F43.10 Post-traumatic stress disorder, unspecified; R29.6 Repeated falls; I50.9 Heart failure, unspecified; E11.9 Type 2 diabetes mellitus without complications; I10 Essential (primary) hypertension; R82.998 Other abnormal findings in urine
CPT/HCPCS: 80048; 80053; 85027; 81003; 83880; 87086

== ENCOUNTER 2020-11-04 18:54 | Outpatient (REF) | payer MEDICARE, OTHER, SELFPAY ==
[2020-11-04 19:20] LABS: Anion Gap 8.8 mmol/L (3-11); BUN 52 mg/dL (7-18); CO2 27.2 mmol/L (21.0-32.0); CREATININE 1.4 mg/dL (0.70-1.30); Calcium 8.9 mg/dL (8.5-10.1); Chloride 107 mmol/L (98-107); Estimated GFR 49.14 (mL/min/1.73m2); Glucose 244 mg/dL (74-106); NT-proBNP 2239 pg/mL (<300); Sodium 143 mmol/L (136-145)
== END 2020-11-04 18:55 | disposition home or self-care (01) ==
LOC: LBN 18:54
PROVIDERS: PCP Family Medicine; Visit Provider Family Medicine
DX: N18.9 Chronic kidney disease, unspecified (principal); I50.9 Heart failure, unspecified
CPT/HCPCS: 80048; 83880

== ENCOUNTER 2020-11-07 10:37 | Outpatient (CLI) | payer MEDICARE, OTHER, SELFPAY ==
--- NOTE | 2020-11-07 11:15 | RT.EKG_ITS ---
APPROVED REPORT Exam: Resting ECG Reason for Exam: Palpitations Patient Location: O HR:70 bpm ECG Measurements Heart Rate 70 AXIS MN [id number] P [id number] QRSd 139 QRS 86 QT 404 T 254 QTc 438 Conclusion Atrial fibrillation...V-rate 60- 83, irreg A-activity Nonspecific intraventricular conduction delay...QRSd >115mS, not LBBB/RBBB Consider anterior infarct...Q >30mS in V2-V5 Nonspecific repol abnormality, diffuse leads...ST dep, T flat/neg, ant/lat/inf
== END 2020-11-07 10:38 | disposition home or self-care (01) ==
LOC: RT 10:40
PROVIDERS: PCP Family Medicine; Visit Provider Nurse Practitioner Family
DX: R00.2 Palpitations (principal); R07.89 Other chest pain
CPT/HCPCS: 93005; 93010

== ENCOUNTER 2020-12-04 16:52 | Outpatient (REF) | payer MEDICARE, OTHER, SELFPAY ==
[2020-12-04 17:30] LABS: ALT 20 U/L (16-63); AST 18 U/L (15-37); Albumin 3.5 g/dL (3.4-5.0); Alkaline Phosphatase 99 U/L (46-116); Anion Gap 10.5 mmol/L (3-11); BUN 44 mg/dL (7-18); Bilirubin, Total 0.3 mg/dL (0.2-1.0); CO2 26.5 mmol/L (21.0-32.0); CREATININE 1.4 mg/dL (0.70-1.30); Calcium 8.9 mg/dL (8.5-10.1); Chloride 106 mmol/L (98-107); Estimated GFR 49.14 (mL/min/1.73m2); Glucose 223 mg/dL (74-106); Potassium 4.4 mmol/L (3.5-5.1); Sodium 143 mmol/L (136-145); Total Protein 6.2 g/dL (6.4-8.2)
[2020-12-04 17:43] LABS: HCT 36.7 % (40.0-50.0); HGB 11.9 g/dL (13.5-17.5); MCH 31.1 pg (27.0-33.0); MCHC 32.4 % (32.0-36.0); MCV 95.8 fL (80-95); MPV 10.6 fL (8.0-11.0); Platelet Count 229 10^3/uL (130-400); RBC 3.83 10^6/uL (4.36-5.78); RDW-SD 45.2 fL; WBC 8.86 10^3/uL (4.4-10.8)
== END 2020-12-04 16:53 | disposition home or self-care (01) ==
LOC: LBN 16:52
PROVIDERS: PCP Family Medicine; Visit Provider Nurse Practitioner Family
DX: F03.91 Unspecified dementia, unspecified severity, with behavioral disturbance (principal); R82.998 Other abnormal findings in urine
CPT/HCPCS: 80053; 85027; 87086

== ENCOUNTER 2020-12-12 16:42 | Outpatient (REF) | payer MEDICARE, OTHER, SELFPAY ==
[2020-12-12 18:24] LABS: Hemoglobin A1C 9.5 % (<5.7)
== END 2020-12-12 16:43 | disposition home or self-care (01) ==
LOC: LBN 16:42
PROVIDERS: PCP Family Medicine; Visit Provider Family Medicine
DX: E11.9 Type 2 diabetes mellitus without complications (principal)
CPT/HCPCS: 83036

== ENCOUNTER 2021-01-11 12:41 | Outpatient (CLI) | payer MEDICARE, OTHER, SELFPAY ==
--- NOTE | 2021-01-11 12:45 | RT.EKG_ITS ---
APPROVED REPORT Exam: Resting ECG Reason for Exam: afib Patient Location: O HR:78 bpm ECG Measurements Heart Rate 78 AXIS GA [id number] P [id number] QRSd 134 QRS 70 QT 367 T 220 QTc 419 Conclusion Atrial fibrillation...V-rate 60- 93, irreg A-activity Left bundle branch block...QRSd>120, broad/notched R
== END 2021-01-11 12:42 | disposition home or self-care (01) ==
LOC: DI.CARD 12:53
PROVIDERS: PCP Family Medicine; Referring Provider Family Medicine; Visit Provider Internal Medicine Cardiovascular Disease
DX: I48.19 Other persistent atrial fibrillation (principal)
CPT/HCPCS: 93010

== ENCOUNTER → 2021-01-11 12:41 | Outpatient (BNVA) | payer MEDICARE, OTHER, SELFPAY | PROVIDERS: PCP Family Medicine; Referring Provider Family Medicine; Visit Provider Internal Medicine Cardiovascular Disease | DX: I25.9 Chronic ischemic heart disease, unspecified (principal); I13.0 Hypertensive heart and chronic kidney disease with heart failure and stage 1 through stage 4 chronic kidney disease, or unspecified chronic kidney disease; E78.5 Hyperlipidemia, unspecified; I48.21 Permanent atrial fibrillation; I50.9 Heart failure, unspecified; J44.9 Chronic obstructive pulmonary disease, unspecified; N18.9 Chronic kidney disease, unspecified | CPT/HCPCS: 93005; 99203; 99214 ==

== ENCOUNTER 2021-01-22 16:01 | Outpatient (REF) | payer MEDICARE, OTHER, SELFPAY ==
[2021-01-22 16:47] LABS: Bilirubin Negative (Negative); Blood Negative (Negative); Clarity Clear (Clear); Glucose 100 mg/dL (Negative); Ketones Negative (Negative); Leukocyte Esterase Negative (Negative); Nitrite Negative (Negative); Specific Gravity 1.025 (1.005-1.025); Urobilinogen 0.2 EU/dL (Up TO 0.2); pH 5.5 (5-8)
== END 2021-01-22 16:02 | disposition home or self-care (01) ==
LOC: LBN 16:01
PROVIDERS: PCP Family Medicine; Visit Provider Family Medicine
DX: N39.0 Urinary tract infection, site not specified (principal)
CPT/HCPCS: 81003; 87086

== ENCOUNTER 2021-01-23 12:23 | Outpatient (REF) | payer MEDICARE, OTHER, SELFPAY ==
[2021-01-23 14:19] LABS: HCT 37.7 % (40.0-50.0); MCH 30.8 pg (27.0-33.0); MCHC 31.8 % (32.0-36.0); MCV 96.9 fL (80-95); MPV 10.7 fL (8.0-11.0); Platelet Count 242 10^3/uL (130-400); RBC 3.89 10^6/uL (4.36-5.78); RDW 13.2 % (11.8-14.1); RDW-SD 47.1 fL; WBC 10.47 10^3/uL (4.4-10.8)
[2021-01-23 14:58] LABS: D-Dimer 3573 ng/mlFEU (<500)
[2021-01-23 15:15] LABS: ALT 23 U/L (16-63); AST 16 U/L (15-37); Albumin 3.5 g/dL (3.4-5.0); Alkaline Phosphatase 86 U/L (46-116); BUN 46 mg/dL (7-18); Bilirubin, Total 0.5 mg/dL (0.2-1.0); CREATININE 1.5 mg/dL (0.70-1.30); Calcium 8.9 mg/dL (8.5-10.1); Chloride 107 mmol/L (98-107); Estimated GFR 45.38 (mL/min/1.73m2); Glucose 178 mg/dL (74-106); NT-proBNP 2545 pg/mL (<300); Potassium 4.8 mmol/L (3.5-5.1); Sodium 142 mmol/L (136-145); Total Protein 6.2 g/dL (6.4-8.2)
== END 2021-01-23 12:24 | disposition home or self-care (01) ==
LOC: LBN 12:23
PROVIDERS: PCP Family Medicine; Visit Provider Nurse Practitioner Family
DX: I50.9 Heart failure, unspecified (principal); N18.30 Chronic kidney disease, stage 3 unspecified; D50.9 Iron deficiency anemia, unspecified; I25.9 Chronic ischemic heart disease, unspecified
CPT/HCPCS: 80053; 85027; 83880; 85379

== ENCOUNTER 2021-01-24 15:54 | Emergency (ER) | payer MEDICARE, OTHER, SELFPAY ==
[2021-01-24] VITALS (17 sets, daily range): BP systolic 121–184; BP diastolic 61–95; PULSE 61–93; RESP 14–44; TEMP 36–36.3; O2SAT 95–100
--- NOTE | 2021-01-24 17:00 | DI.CT_ITS ---
Exam(s) CT CHEST PE ABD PELVIS W EXAM: CT CHEST PE ABD PELVIS W CLINICAL HISTORY: L sided chest pain s/p fall, dizziness. TECHNIQUE: Imaging Protocol: Axial computed tomography images of the chest abdomen and pelvis with c oronal and sagittal reformatted images were created and reviewed CONTRAST MATERIAL: Intravenous: Omnipaque 350 Contrast volume:100 contrast route:IV - Oral: no COMPARISON: No exams were available for comparison FINDINGS: CHEST: Tracheobronchial tree: Patent where visualized. Mediastinum and [place]: No dominant adenopathy or fluid collection. Pulmonary parenchyma: Mild dependent changes.. Pleura: Small bilateral pleural effusions. No pneumothorax. Aorta: Thoracic portion non-dilated. Lymph nodes: Within normal limits. Heart: Enlarged. Coronary artery calcifications. Pulmonary arteries: No evidence of emboli. Bones: No displaced rib fracture. No thoracic compression fracture. Degenerative disc changes. ABDOMEN: Liver: Normal density. No measurable mass. Gallbladder and biliary tract: No radiodense calculus or dilation. Pancreas: Normal density, no abnormal calcifications or inflammatory process. Spleen: Normal. Kidneys: Normal size, contour and axis. No radiodense stones or obstructive uropathy. No masses seen. Cyst left kidney. Adrenal glands: No masses seen. Lymph nodes: Within normal limits. Aorta: Abdominal portion non-dilated. Severe atherosclerotic calcification. Fatty containing umbilical hernia. PELVIS: Bladder: Symmetric distention, no gross wall thickening. Bowel: No obstruction or bowel wall thickening. Diverticulosis. Appendix normal. Peritoneal cavity: No ascites, collection or mesenteric inflammatory response. Reproductive organs: Within normal limits. Bones: Degenerative disc changes. No evidence of fracture. IMPRESSION: No acute posttraumatic abnormality in the chest abdomen or pelvis.. Bilateral pleural effusions. RADIATION DOSE DELIVERED: 1,898.23mGy.cm Total DLP DATA REPOSITORY: All CT scans at this facility are submitted to the National Radiology Data Registry (NRDR) Dose Index Registry (DIR) with the [employer] ([employer]). RADIATION OPTIMIZATION: All CT scans at this facility use at least one of these dose optimization te chniques: automated exposure control; mA and/or kV adjustment per patient size (includes targeted exa ms where dose is matched to clinical indication); or iterative reconstruction.
[2021-01-24] MEDS: Omnipaque 350 MG/ML 100 ML BTL IJ (17:54)
[2021-01-24] MEDS: Normal Saline - Diluent 50 ML VIAL IV (17:54)
[2021-01-24] MEDS: Normal Saline Flush 10 ML SYR IVP (17:55)
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
--- NOTE | 2021-01-24 18:15 | RT.EKG_ITS ---
APPROVED REPORT Exam: Resting ECG Reason for Exam: dizziness Patient Location: E HR:80 bpm ECG Measurements Heart Rate 80 [place] [id number] P [id number] QRSd 142 QRS 83 QT 409 T 251 QTc 473 Conclusion Atrial fibrillation...V-rate 61- 97, irreg A-activity IVCD, consider LBBB...QRSd>120, notch/slur R I aVL V5-6. Afib. No STEMI. No significant change from previous EKG. I have reviewed and interpreted ECG and agree with software generated interpretation.
[2021-01-24] MEDS: Normal Saline 500 ML IV (18:39)
[2021-01-24] MEDS: ACETAMINOPHEN 1,000 MG/100 ML BTL 400 MG IVPB (19:05)
--- NOTE | 2021-01-24 19:12 | DI.VRAD_ITS ---
PROCEDURE INFORMATION: Exam: CTA Chest With Contrast Exam date and time: 01/24/2021 5:06 PM Age: 75 years old Clinical indication: Other: L sided chest pain S/P fall, dizziness R/O TECHNIQUE: Imaging protocol: Computed tomographic angiography of the chest with contrast. 3D rendering (Not supervised by radiologist): MIP and/or 3D reconstructed images were created by the technologist. Contrast material: OMNIPAQUE 350; Contrast volume: 100 ml; Contrast route: INTRAVENOUS (IV); COMPARISON: CR XR CHEST 2V PA LATERAL 01/19/2019 11:17 PM FINDINGS: Pulmonary arteries: Normal. No pulmonary emboli. Aorta: No gross evidence of aortic injury or dissection (however phase of contrast opacification is suboptimal to evaluate the aorta). Other arteries: The vasculature demonstrates diffuse moderate atherosclerotic calcification. Lungs: Subpleural consolidation within the right pulmonary base most likely compatible with rounded atelectasis (series 8, image 63). No masses. Pleural spaces: Bilateral small pleural effusions. Heart: Severe atherosclerotic calcifications of the coronary arteries. Lymph nodes: Unremarkable. No enlarged lymph nodes. Bones/joints: Unremarkable. No acute fracture. Soft tissues: Unremarkable. IMPRESSION: 1. No evidence of pulmonary embolism. No gross aortic injury (suboptimal contrast bolus). 2. Bilateral small pleural effusions. PROCEDURE INFORMATION: Exam: CT Angiography Abdomen With Contrast Exam date and time: 01/24/2021 5:06 PM Age: 75 years old Clinical indication: Other: L sided chest pain S/P fall, dizziness R/O TECHNIQUE: Imaging protocol: Computed tomographic angiography images of the abdomen with intravenous contrast material. 3D rendering (Not supervised by radiologist): MIP and/or 3D reconstructed images were created by the technologist. Contrast material: OMNIPAQUE 350; Contrast volume: 100 ml; Contrast route: INTRAVENOUS (IV); COMPARISON: CR XR CHEST 2V PA LATERAL 01/19/2019 11:17 PM FINDINGS: Aorta: The vasculature demonstrates diffuse marked atherosclerotic calcification. No evidence of aortic dissection or injury, however evaluation is somewhat limited due to suboptimal contrast bolus. Celiac trunk and mesenteric arteries: No occlusion or significant stenosis. Renal arteries: No occlusion or significant stenosis. Liver: Normal. No mass. Gallbladder and bile ducts: Normal. No calcified stones. No ductal dilation. Pancreas: Normal. No ductal dilation. Spleen: Normal. No splenomegaly. Adrenals: Normal. No mass. Kidneys and ureters: Normal. No hydronephrosis. Stomach and bowel: Moderate diverticulosis is present in the distal colon. Lymph nodes: Unremarkable. No enlarged lymph nodes. Intraperitoneal space: Unremarkable. No free air. No significant fluid collection. Bones/joints: Severe degenerative disc disease at L4-L5 with loss of disc height, disc-osteophyte complex and grade 1 anterolisthesis. Soft tissues: Small periumbilical hernia containing fat. IMPRESSION: 1. No acute abdominal or pelvic process. No gross aortic injury (suboptimal contrast bolus). 2. Moderate diverticulosis of the distal and sigmoid colon. Dictated and Authenticated by: Igor Maldonado MD. Ordering:ASHLEY Pedersen MD
== END 2021-01-24 20:03 | disposition home or self-care (01) ==
PROVIDERS: Emergency Provider Physician Assistant; PCP Family Medicine
DX: S20.212A Contusion of left front wall of thorax, initial encounter (principal); W18.39XA Other fall on same level, initial encounter; R42 Dizziness and giddiness; R79.1 Abnormal coagulation profile
CPT/HCPCS: 71275; 74177; 80053; 93005; 96361; 96365; 99285; 85025; 93010; 99284; J0131; J3490

== ENCOUNTER 2021-03-06 01:56 | Outpatient (CLI) | payer MEDICARE, OTHER, SELFPAY ==
--- NOTE | 2021-03-06 12:57 | DI.US_ITS ---
APPROVED REPORT EXAM: Comprehensive 2D, Doppler, and color-flow Echocardiogram Patient Location: Out-Patient [employer] Mounted: Milena Yanes RDCS (AE) Indications: SOB, Chronic A Fib, Lightheadedness Other Information Study Quality: Fair. Technically limited study due to body habitus, patient unable to tolerate any co mpression at all. Conclusion Normal left ventricular wall thickness and chamber size. Estimated ejection fraction is 55%. Septal motion is consistent with LBBB Normal right ventricular size and systolic function Both atria are normal in size Aortic valve is sclerotic. Unable to identify number of leaflets. There is mild aortic stenosis. P eak gradient is 32, mean 19 mmHg Moderate mitral annular calcification. Trace mitral regurgitation Normal tricuspid valve. Trace tricuspid regurgitation. Estimated right ventricular systolic pressur e is 41 mmHg Patient was in atrial fibrillation with a controlled rate throughout the study Wall motion Left Ventricle The left ventricle is normal size. The left ventricular systolic function is normal. The left ventric ular ejection fraction is within the normal range. There is normal left ventricular wall thickness. S eptal motion consistent with LBBB There is no ventricular septal defect visualized. LVEF is 55%. Right Ventricle The right ventricle is normal size. The right ventricular systolic function is normal. The RVSP is 41 .1mmHg. Atria The left atrium size is normal. The right atrium size is normal. The interatrial septum is intact wit h no evidence for an atrial septal defect. Aortic Valve Aortic valve is calcified. Number of aortic valve leaflets could not be assessed. Mild aortic stenosi s. Peak aortic valve gradient is 32.0mmHg. Highest mean aortic valve gradient is 19.6mmHg. Calculate d CHERYL by the continuity equation is .90cm2. No aortic regurgitation is present. Mitral Valve Moderate mitral annular calcification. No evidence of mitral valve stenosis. Trace mitral regurgitati on. Tricuspid Valve The tricuspid valve is normal in structure. There is no tricuspid valve stenosis. Trace tricuspid reg urgitation. Pulmonic Valve The pulmonary valve is normal in structure. There is no pulmonic valvular stenosis. There is no pulmo tanya valvular regurgitation. Great Vessels The aortic root is normal in size. The ascending aorta is normal in size. Aortic arch is not well vis ualized. IVC is normal in size and collapses >50% with inspiration. Pericardium There is no pericardial effusion. 2D Dimensions IVSD d PLAX 1.09 cm M: 0.6-1.2 LVPW d PLAX 1.08 cm M: 0.6 - 1.2 LVID d PLAX 4.93 cm M: 4.2 - 5.8 LVDs 3.60 cm M: 2.5 - 4.0 Ao Root d 3.25 cm M: 3.1 - 3.7 RA Area A4C 22.84 cm2 Ao Asc Diam d 3.43 cm M: 2.6 - 3.4 LV EF Teichholz 51.9 % FS 26.60 % M-Mode TAPSE 1.78 cm (M/F) >1.7 LV Diastology MV E' medial 0.138 (>0.07 m/s) MV E Vmax 1.06 (0.4-1.3 m/s) LV E/e MED 7.65 (<14) MV E' lateral 0.060 (>0.1 m/s) LV E/e LAT 17.70 (<14) MV E/E' medial 7.66 MV E/E' lateral 17.70 Aortic Valve LVOT Area 3.60 cm2 AoV Area Vmax 0.90 cm2 LVOT Vmax 0.70 m/s CHERYL Mean Beka. 0.91 cm2 LVOT Mean Ebka. 0.53 m/s LVOT Peak Grad 2.0 mmHg LVOT Mean Grad 1.3 mmHg LVOT VTI 0.154 m LVOT Diam s 2.10 cm AoV Vmax 2.83 m/s Velocity Ratio 0.24 AoV Mean Beka. 2.11 m/s AoV Peak Grad 32.0 mmHg LVOT SV 55.50 mL AoV Mean Grad 19.6 mmHg AoV VTI 0.552 m AoV Area VTI 1.01 cm2 Mitral Valve MV DT 210 (160-240 msec) MV PHT 61 msec MV Area PHT 3.61 cm2 MV VTI 0.221 m MV Area VTI 2.51 (4.0-6.0 cm2) Pulmonary Valve PV Vmax 1.17 (0.5-1.5 m/s) RVOT Peak Gr. 3.14 mmHg PV Peak Grad 5.5 mmHg RVOT Mean Gr. 1.70 mmHg PV Mean Grad 2.8 mmHg RVOT VTI 0.168 m PV VTI 0.244 m RVOT Vmax 0.89 m/s Tricuspid Valve TR Peak Grad 38.1 mmHg TR Vmax 3.09 m/s RA Pressure 3.00 mmHg RVSP (TR) 41.1 mmHg
== END 2021-03-06 02:16 ==
PROVIDERS: PCP Family Medicine; Visit Provider Family Medicine
DX: R06.02 Shortness of breath (principal); I48.20 Chronic atrial fibrillation, unspecified; R42 Dizziness and giddiness; R93.9 Diagnostic imaging inconclusive due to excess body fat of patient; I35.0 Nonrheumatic aortic (valve) stenosis
CPT/HCPCS: 93306

== ENCOUNTER 2021-03-12 14:47 | Emergency (ER) | payer MEDICARE, OTHER, SELFPAY ==
[2021-03-12 14:47] VITALS: BP 164/89; PULSE 100; RESP 18; TEMP 36.4; O2SAT 99
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
[2021-03-12 15:24] LABS: Abs Immature Grans 0.03 10^3/uL (0.0-0.06); Absolute Basophil Count 0.01 10^3/uL (0.0-0.2); Absolute Eosinophil Count 0.17 10^3/uL (0.0-0.7); Absolute Monocyte Count 0.52 10^3/uL (0.1-0.8); Absolute Neutrophil Count 6.31 10^3/uL (1.2-6.7); Basophils % 0.1; Eosinophils % 2.1; HCT 35.3 % (40.0-50.0); HGB 11.3 g/dL (13.5-17.5); Immature Grans % 0.4; Lymphocytes % 14.6; MCH 31.5 pg (27.0-33.0); MCV 98.3 fL (80-95); MPV 9.8 fL (8.0-11.0); Monocytes % 6.3; Neutrophils % 76.5; Nucleated RBC 0 %; Platelet Count 208 10^3/uL (130-400); RBC 3.59 10^6/uL (4.36-5.78); RDW-SD 46.8 fL; WBC 8.24 10^3/uL (4.4-10.8)
[2021-03-12 15:48] LABS: ALT 17 U/L (16-63); AST 14 U/L (15-37); Albumin 3.2 g/dL (3.4-5.0); Alkaline Phosphatase 85 U/L (46-116); Anion Gap 8.1 mmol/L (3-11); BUN 44 mg/dL (7-18); Bilirubin, Total 0.3 mg/dL (0.2-1.0); CO2 26.9 mmol/L (21.0-32.0); CREATININE 1.5 mg/dL (0.70-1.30); Calcium 8.6 mg/dL (8.5-10.1); Chloride 107 mmol/L (98-107); Estimated GFR 45.38 (mL/min/1.73m2); Glucose 170 mg/dL (74-106); Potassium 4.5 mmol/L (3.5-5.1); Sodium 142 mmol/L (136-145); TSH (W/Ref FT4) 1.66 uIU/mL (0.36-3.74); Total Protein 6.3 g/dL (6.4-8.2)
[2021-03-12 16:21] LABS: Salicylate < 2.8 mg/dL (<2.8)
[2021-03-12 16:24] LABS: Acetaminophen < 2 ug/mL (10-30)
--- NOTE | 2021-03-12 17:15 | DI.CT_ITS ---
Exam(s) CT ABDOMEN PELVIS W EXAM: CT ABDOMEN PELVIS W CLINICAL HISTORY: eval for incarcerated hernia, left flank pain TECHNIQUE: Imaging Protocol: Axial computed tomography images with coronal and sagittal reformatted images were created and reviewed CONTRAST MATERIAL: Intravenous: Omnipaque 350 Contrast volume:100 mL Oral: No COMPARISON: CT CT CHEST PE ABD PELVIS W from 01/24/2021 FINDINGS: ABDOMEN: Lung Bases: Small to moderate bilateral pleural effusions which appear to have slightly increased sin ce the prior examination.. Cardiomegaly. Coronary artery calcifications. Right basilar infiltrate which may represent atelectasis. Liver: Normal density. No measurable mass. The liver has a nodular contour raising the question of he patic cirrhosis. Portal, Superior Mesenteric, and Splenic Veins: Unremarkable. Gallbladder and Biliary Tract: No radiodense calculus or dilation. Pancreas: Normal density, no abnormal calcifications or inflammatory process. Spleen: Normal. Adrenals: No masses seen. Kidneys: Normal size, contour and axis. No radiodense stones or obstructive uropathy. Simple left gilberto al cysts. No follow-up is recommended. Abdominal Aorta: Abdominal portion non-dilated. Atherosclerosis. Bowel: No obstruction or bowel wall thickening. Appendix is unremarkable. Colonic diverticulosis. No evidence of acute diverticulitis. Peritoneal Cavity: No ascites, collection or mesenteric inflammatory response. No free air. Lymph Nodes: Within normal limits. Bones: Within normal limits for the patient's age. Multilevel degenerative changes resulting in cent ral spinal canal stenosis at L4-L5. Soft Tissues: There is a fat containing umbilical hernia. PELVIS: Bladder: Symmetric distention, no gross wall thickening. Reproductive Organs: Unremarkable as visualized. Lymph Nodes: Within normal limits. Bones: Within normal limits for the patient's age. IMPRESSION: 1. No acute abdominal or pelvic process. 2. Small to moderate size bilateral pleural effusions with subjacent atelectasis. The fluid has appe ar to increase slightly since 01/24/2021. RADIATION DOSE DELIVERED: 1,320.11mGy.cm Total DLP DATA REPOSITORY: All CT scans at this facility are submitted to the National Radiology Data Registry (NRDR) Dose Index Registry (DIR) with the [employer] (ACR). RADIATION OPTIMIZATION: All CT scans at this facility use at least one of these dose optimization te chniques: automated exposure control; mA and/or kV adjustment per patient size (includes targeted exa ms where dose is matched to clinical indication); or iterative reconstruction.
--- NOTE | 2021-03-12 17:30 | RT.EKG_ITS ---
APPROVED REPORT Exam: Resting ECG Reason for Exam: afib hx Patient Location: E HR:89 bpm ECG Measurements Heart Rate 89 AXIS NH [id number] P [id number] QRSd 135 QRS 97 QT 380 T 261 QTc 463 Conclusion Atrial fibrillation...V-rate 77- 99, irreg A-activity Nonspecific intraventricular conduction delay...QRSd >115mS, not LBBB/RBBB ST elevation secondary to IVCD...Multiple VCG criteria Abnormal T, consider ischemia, lateral leads...T <-0.20mV, I aVL V5 V6. Afib. No STEMI. No change from previous EKG. I have reviewed and interpreted ECG and agree with software generated interpretation.
[2021-03-12] MEDS: LORazepam 2 MG/ML VIAL 0.5 MG IVP (17:50)
[2021-03-12] MEDS: Normal Saline 500 ML IV (18:14)
[2021-03-12 18:15] LABS: Bilirubin Negative (Negative); Blood Negative (Negative); Clarity Clear (Clear); Glucose Negative (Negative); Ketones Negative (Negative); Leukocyte Esterase Negative (Negative); Nitrite Negative (Negative); Urobilinogen 0.2 EU/dL (Up TO 0.2); pH 5.5 (5-8)
[2021-03-12 18:21] VITALS: BP 158/76; PULSE 90; RESP 18; TEMP 36.5; O2SAT 97
[2021-03-12] MEDS: Omnipaque 350 MG/ML 100 ML BTL IV (18:21)
[2021-03-12 18:22] LABS: *AMPHETAMINES SCREEN URINE Negative (Negative); *BARBITURATES SCREEN URINE Negative (Negative); *BENZODIAZEPINES SCREEN URINE Negative (Negative); Cannabinoids THC Negative (Negative); Cocaine Screen,Urine Negative (Negative); METHADONE URINE SCREEN Negative (Negative); OPIATES URINE SCREEN Negative (Negative)
[2021-03-12 18:29] LABS: Tricyclic Antidepressants Negative (Negative)
--- NOTE | 2021-03-12 19:01 | DI.VRAD_ITS ---
PROCEDURE INFORMATION: Exam: CT Abdomen And Pelvis With Contrast Exam date and time: 03/12/2021 5:25 PM Age: 75 years old Clinical indication: Left flank pain, evaluate for incarcerated hernia. TECHNIQUE: Imaging protocol: Computed tomography of the abdomen and pelvis with contrast. Radiation optimization: All CT scans at this facility use at least one of these dose optimization techniques: automated exposure control; mA and/or kV adjustment per patient size (includes targeted exams where dose is matched to clinical indication); or iterative reconstruction. Contrast material: OMNIPAQUE 350; Contrast volume: 100 ml; Contrast route: INTRAVENOUS (IV); COMPARISON: CT CHEST PE ABD PELVIS W 01/24/2021 5:29 PM FINDINGS: Lungs: Bilateral posterior lung base minimal compressive atelectasis. Pleural spaces: Small to moderate bilateral pleural fluid collections. Heart: Mild cardiomegaly. Trace pericardial fluid. Coronary artery and aortic / mitral valve annulus calcification. Liver: Normal. No mass. Gallbladder and bile ducts: Normal. No calcified stones. No ductal dilation. Pancreas: Normal. No ductal dilation. Spleen: Normal. No splenomegaly. Adrenal glands: Normal. No mass. Kidneys and ureters: No hydronephrosis or perinephric fluid. Renal cortical stable benign simple cysts - no followup imaging is recommended. Stomach and bowel: Scattered colon diverticuli without evidence of diverticulitis. No generalized ileus or bowel obstruction. Interposition of bowel anterior to the liver. Appendix: Normal appendix. Intraperitoneal space: No free air. No significant fluid collection. Vasculature: Unremarkable. No abdominal aortic aneurysm. Lymph nodes: Unremarkable. No enlarged lymph nodes. Urinary bladder: Unremarkable as visualized. Reproductive: Prostate gland is not enlarged. Bones/joints: Spinal degenerative changes. Minimal retrolisthesis of L5 with respect to L4. Soft tissues: Fat-containing umbilical hernia. IMPRESSION: 1. No acute intra-abdominal or pelvic process. 2. Scattered colon diverticuli without evidence of diverticulitis. 3. Small to moderate bilateral pleural fluid collections - mildly increased compared to 01/24/2021. Adjacent bilateral posterior lung base minimal compressive atelectasis. Dictated and Authenticated by: Juan Daniel Lan MD. Ordering:MICHAEL Richey MD
[2021-03-12] MEDS: risperiDONE 1 MG TAB PO (20:27)
[2021-03-12] MEDS: Metoprolol 25 MG TAB PO (20:27)
[2021-03-13] MEDS: risperiDONE 1 MG TAB PO (07:43)
[2021-03-13 07:57] VITALS: BP 143/57; PULSE 81; RESP 18; TEMP 36.7; O2SAT 97
--- NOTE | 2021-03-13 08:14 | NUR.NOTE ---
helped patient use urinal. At this time PT had a small amount of incontinence and pull up brief was a little wet. This technical document writer did gisselle care and powdered groin area. New pull up brief placed on patient. Nursing Note:
--- NOTE | 2021-03-13 08:27 | NUR.NOTE ---
Patient boosted up in the bed for better positioning to eat breakfast. Nursing Note:
--- NOTE | 2021-03-13 08:38 | NUR.NOTE ---
Patient complaining of his bottom side bothering him. Patient finished breakfast and leaned back on bed but not flat. Pillow placed under left side to relieve pressure. Nursing Note:
--- NOTE | 2021-03-13 11:07 | NUR.NOTE ---
called [facility] multiple times during pt's stay requesting MAR in order to safely provide medications some medications not given in the ER due to this Nursing Note:
[2021-03-13 11:19] VITALS: BP 136/73; PULSE 95; TEMP 36.5; O2SAT 96
== END 2021-03-13 11:15 | disposition home or self-care (01) ==
PROVIDERS: Registered Nurse Emergency; Emergency Provider Physician Assistant; PCP Family Medicine
DX: F32.A Depression, unspecified (principal); R45.851 Suicidal ideations; F41.8 Other specified anxiety disorders; R10.817 Generalized abdominal tenderness; K42.9 Umbilical hernia without obstruction or gangrene; I48.91 Unspecified atrial fibrillation; E11.9 Type 2 diabetes mellitus without complications; Z79.4 Long term (current) use of insulin; Z79.84 Long term (current) use of oral hypoglycemic drugs; R45.1 Restlessness and agitation; F03.91 Unspecified dementia, unspecified severity, with behavioral disturbance; F25.9 Schizoaffective disorder, unspecified; F43.10 Post-traumatic stress disorder, unspecified
CPT/HCPCS: 36415; 36416; 80053; 80307; 82962; 93005; 96361; 96374; 99285; 74177; 80329; 81003; 84443; 85025; 93010; J2060; J3490

== ENCOUNTER 2021-03-31 11:52 | Outpatient (REF) | payer MEDICARE, OTHER, SELFPAY ==
[2021-03-31 12:32] LABS: Abs Immature Grans 0.03 10^3/uL (0.0-0.06); Absolute Basophil Count 0.04 10^3/uL (0.0-0.2); Absolute Eosinophil Count 0.08 10^3/uL (0.0-0.7); Absolute Lymphocyte Count 1.04 10^3/uL (1.2-3.4); Absolute Monocyte Count 0.56 10^3/uL (0.1-0.8); Absolute Neutrophil Count 7.91 10^3/uL (1.2-6.7); Basophils % 0.4; Eosinophils % 0.8; HCT 37.8 % (40.0-50.0); HGB 12.1 g/dL (13.5-17.5); Immature Grans % 0.3; Lymphocytes % 10.8; MCH 31.6 pg (27.0-33.0); MCV 98.7 fL (80-95); MPV 10.4 fL (8.0-11.0); Monocytes % 5.8; Neutrophils % 81.9; Nucleated RBC 0 %; Platelet Count 274 10^3/uL (130-400); RBC 3.83 10^6/uL (4.36-5.78); RDW 13.2 % (11.8-14.1); RDW-SD 47.3 fL; WBC 9.66 10^3/uL (4.4-10.8)
[2021-03-31 12:39] LABS: BUN 43 mg/dL (7-18); CREATININE 1.5 mg/dL (0.70-1.30); Calcium 8.7 mg/dL (8.5-10.1); Chloride 107 mmol/L (98-107); Estimated GFR 45.38 (mL/min/1.73m2); Glucose 171 mg/dL (74-106); Potassium 4.4 mmol/L (3.5-5.1); Sodium 144 mmol/L (136-145)
[2021-03-31 13:29] LABS: Bilirubin Negative (Negative); Blood Negative (Negative); Clarity Clear (Clear); Glucose Negative (Negative); Ketones Negative (Negative); Leukocyte Esterase Negative (Negative); Nitrite Negative (Negative); Specific Gravity 1.025 (1.005-1.025); Urobilinogen 0.2 EU/dL (Up TO 0.2); pH 5.5 (5-8)
== END 2021-03-31 11:53 | disposition home or self-care (01) ==
LOC: LBN 11:52
PROVIDERS: PCP Family Medicine; Visit Provider Family Medicine
DX: E11.9 Type 2 diabetes mellitus without complications (principal); N18.30 Chronic kidney disease, stage 3 unspecified; F03.91 Unspecified dementia, unspecified severity, with behavioral disturbance; R82.79 Other abnormal findings on microbiological examination of urine
CPT/HCPCS: 80048; 81003; 85025; 87086

== ENCOUNTER 2021-04-25 17:35 | Outpatient (REF) | payer MEDICARE, OTHER, SELFPAY ==
[2021-04-26 08:28] LABS: C Diff PCR Negative (Negative)
== END 2021-04-25 17:36 | disposition home or self-care (01) ==
LOC: LBN 17:35
PROVIDERS: PCP Family Medicine; Visit Provider Family Medicine
DX: R11.2 Nausea with vomiting, unspecified (principal)
CPT/HCPCS: 87493